=== PATIENT | male | born 1960 | race Caucasian/White ===

== ENCOUNTER → 2019-07-04 20:03 | Outpatient (CLI) | payer OTHER, SELFPAY ==
--- NOTE | 2019-07-04 20:12 | DI.RAD.S_ITS ---
PROCEDURE: XR HAND RT MIN 3V INDICATIONS: crush injury, pain to 2nd and 3rd metacarpal. r/o fx TECHNIQUE: 3 views of the hand(s) acquired. COMPARISON: None. FINDINGS: Bones: No fractures or dislocations. Carpal bones are normally aligned. No suspicious bony lesions. Soft tissues: No suspicious soft tissue calcifications. The soft tissue thickening along the dorsum of the hand overlying the mid and distal metacarpals. No foreign body. IMPRESSION: No fractures or foreign body. Soft tissue injury over the dorsum of the hand. Dictated by: Cinthia Boykin M.D. on 07/04/2019 at 20:31 Approved by: Cinthia Boykin M.D. on 07/04/2019 at 20:32
== END ==
PROVIDERS: Visit Provider Physician Assistant
DX: S60.221A Contusion of right hand, initial encounter (principal); X58.XXXA Exposure to other specified factors, initial encounter
CPT/HCPCS: 73130